=== PATIENT | female | born 2000 | race Two or more races ===

== ENCOUNTER → 2020-04-09 | Outpatient (CLI) | payer SELFPAY | LOC: M LABSMTC 11:33 | PROVIDERS: ATTEND Pediatrics | DX: Z20.822 Contact with and (suspected) exposure to COVID-19 (principal) ==

== ENCOUNTER → 2020-04-27 | Outpatient (CLI) | payer SELFPAY | LOC: M LABSMTC 14:22 | PROVIDERS: ATTEND Pediatrics | DX: Z20.822 Contact with and (suspected) exposure to COVID-19 (principal) ==